=== PATIENT | female | born 1970 | race Caucasian/White ===

== ENCOUNTER 2017-11-23 07:30 | Emergency (ER) | payer BC, OTHER ==
[2017-11-23 07:46] VITALS: BP 104/72
--- NOTE | 2017-11-23 07:53 | UC ---
Throat Pain/Nasal Christiano HPI - HPI Summary HPI Summary: 47 yo f sore throat x 3-4 days. Tonsils swollen with exudates. No sob. Minimal runny nose. No chapa. No chest congestion. - History of Current Complaint Chief Complaint: UCGeneralIllness Stated Complaint: SORE THROAT Time Seen by Provider: 11/23/17 07:39 Hx Obtained From: Patient ?: No Onset/Duration: Lasting Days Severity: Moderate Pain Intensity: 9 Cough: None Associated Signs & Symptoms: Positive: Dysphagia - Epiglottits Risk Factors Epiglottis Risk Factors: Negative - Allergies/Home Medications Allergies/Adverse Reactions: Allergies Allergy/AdvReac Type Severity Reaction Status Date / Time No Known Allergies Allergy Verified 11/23/17 07:43 Home Medications: Home Medications Ibuprofen TAB* [Advil TAB*] 800 mg PO Q6H PRN 11/23/17 [History Confirmed ] PMH/Surg Hx/FS Hx/Imm Hx Previously Healthy: Yes Other Endocrine History: NO DM Other Cardiovascular History: NO HTN - Surgical History Surgical History: None - Family History Known Family History: Positive: Diabetes, Respiratory Disease - ASTHMA - Social History Occupation: Employed Full-time Alcohol Use: Occasionally Substance Use Type: None Smoking Status (MU): Never Smoked Tobacco Review of Systems Constitutional: Fever Skin: Negative Eyes: Negative ENT: Sore Throat Respiratory: Negative, Other - no cough Cardiovascular: Negative Gastrointestinal: Negative Genitourinary: Negative Motor: Negative Neurovascular: Negative Musculoskeletal: Negative Neurological: Negative Psychological: Negative Is Patient Immunocompromised?: Yes All Other Systems Reviewed And Are Negative: Yes Physical Exam Triage Information Reviewed: Yes Appearance: Ill-Appearing - mildly Vital Signs: Initial Vital Signs Temp 98.6 F 11/23/17 07:39 Pulse 90 11/23/17 07:39 Resp 15 11/23/17 07:39 BP 104/72 11/23/17 07:39 Pulse Ox 100 11/23/17 07:39 Vital Signs Reviewed: Yes Eye Exam: Normal ENT: Positive: Pharyngeal erythema, Nasal congestion, TMs normal, Tonsillar swelling, Tonsillar exudate Dental Exam: Normal Neck exam: Normal Neck: Positive: Supple Respiratory: Positive: Lungs clear, Normal breath sounds Cardiovascular: Positive: RRR Musculoskeletal Exam: Normal Musculoskeletal: Positive: Strength Intact, ROM Intact Neurological Exam: Normal Neurological: Positive: Alert, Muscle Tone Normal Psychological Exam: Normal Skin Exam: Normal Throat Pain/Nasal Course/Dx - Course Course Of Treatment: DISCUSSED VIRAL VERSES BACTERIAL INFECTION AND THE ROLE OF ANTIBIOTICS. THE PATIENT WISHES TO BE ON ANTIBIOTICS AT THIS TIME. - Differential Dx/Diagnosis Provider Diagnoses: TONSILLITIS Discharge - Sign-Out/Discharge Documenting (check all that apply): Patient Departure - Discharge Plan Condition: Stable Disposition: HOME Prescriptions: Amoxicillin PO (*) [Amoxicillin 875 MG (*)] 875 mg PO BID #20 tab Patient Education Materials: Tonsillitis (ED) Referrals: Alexandria Woods MD [Primary Care Provider] - Additional Instructions: FOLLOW UP WITH YOUR DOCTOR IF NOT COMPLETELY IMPROVED. GET RECHECKED FOR ANY WORSENING OF YOUR CONDITION OR QUESTIONS OR CONCERNS. - Billing Disposition and Condition Condition: STABLE Disposition: Home
== END 2017-11-23 08:16 | disposition home or self-care (01) ==
LOC: UCCORT 07:30
DX: J03.90 Acute tonsillitis, unspecified (principal)
CPT/HCPCS: 87651; 99212; G0463

== ENCOUNTER 2017-11-25 17:00 | Emergency (ER) | payer BC, OTHER ==
[2017-11-25 17:29] VITALS: BP 124/69
--- NOTE | 2017-11-25 17:45 | UC ---
Throat Pain/Nasal Christiano HPI - HPI Summary HPI Summary: Pt returns to clinic with c/o worsening sore throat pain. Pt's strep at last visit was negative. Culture not sent. Pt has been taking amox, tylenol and ibuprofen as instructed but does not feel any better, feels worse. Pt has positive hx of mono 20+ years ago. - History of Current Complaint Chief Complaint: UCGeneralIllness Stated Complaint: SORE THROAT Time Seen by Provider: 11/25/17 17:33 Hx Obtained From: Patient ?: No Onset/Duration: Gradual Onset, Lasting Days, Worse Since Severity: Severe Pain Intensity: 9 Cough: None Associated Signs & Symptoms: Positive: Dysphagia - Epiglottits Risk Factors Epiglottis Risk Factors: Negative - Allergies/Home Medications Allergies/Adverse Reactions: Allergies Allergy/AdvReac Type Severity Reaction Status Date / Time No Known Allergies Allergy Verified 11/23/17 07:43 Home Medications: Home Medications Acetaminophen [Tylophen] 1,000 mg PO Q8H 11/25/17 [History Confirmed 11/25/17] PMH/Surg Hx/FS Hx/Imm Hx Previously Healthy: Yes - Surgical History Surgical History: None - Family History Known Family History: Positive: Diabetes, Respiratory Disease - ASTHMA - Social History Occupation: Employed Full-time Lives: With Family Alcohol Use: Occasionally Substance Use Type: None Smoking Status (MU): Never Smoked Tobacco Have You Smoked in the Last Year: No Review of Systems Constitutional: Chills, Fatigue Skin: Negative Eyes: Negative ENT: Sore Throat Respiratory: Negative Cardiovascular: Negative Gastrointestinal: Negative Genitourinary: Negative Motor: Negative Neurovascular: Negative Musculoskeletal: Myalgia Neurological: Negative Psychological: Negative Is Patient Immunocompromised?: No All Other Systems Reviewed And Are Negative: Yes Physical Exam Triage Information Reviewed: Yes Appearance: Ill-Appearing, Pain Distress Vital Signs: Initial Vital Signs Temp 98.9 F 11/25/17 17:23 Pulse 102 11/25/17 17:23 Resp 18 11/25/17 17:23 BP 124/69 11/25/17 17:23 Pulse Ox 99 11/25/17 17:23 Vital Signs Reviewed: Yes Eye Exam: Normal ENT Exam: Other ENT: Positive: Tonsillar swelling - touching, Tonsillar exudate - large amount Dental Exam: Normal Neck: Positive: Enlarged Nodes @ - bilateral submaxillary, > 1 cm and tender Respiratory Exam: Normal Cardiovascular Exam: Normal Musculoskeletal Exam: Normal Neurological Exam: Normal Psychological Exam: Normal Skin Exam: Normal Diagnostics - Laboratory Diagnostic Studies Completed/Ordered: rapid strep: negative. throat culture ordered, results pending Throat Pain/Nasal Course/Dx - Differential Dx/Diagnosis Differential Diagnosis/HQI/PQRI: Mononucleosis, Pharyngitis, Tonsillitis Provider Diagnoses: tonsillitis Discharge - Sign-Out/Discharge Documenting (check all that apply): Patient Departure - Discharge Plan Condition: Stable Disposition: HOME Prescriptions: Fluconazole 100 MG TAB* [Diflucan 100 MG TAB*] 100 mg PO DAILY #3 tab Lidocaine 2% VISCOUS* [Xylocaine 2% Viscous*] 15 ml SWISH SPIT Q6H PRN #1 btl PRN Reason: Pain Penicillin VK 500 MG TAB(NF) [Penicillin VK 500 mg Tab] 500 mg PO Q6H #40 tab predniSONE TAB* [Deltasone 20 MG TAB*] 20 mg PO DAILY #4 tab Patient Education Materials: Tonsillitis (ED) Referrals: Alexandria Woods MD [Primary Care Provider] - If Needed - Billing Disposition and Condition Condition: STABLE Disposition: Home
[2017-11-25] MEDS ORDERED: predniSONE TAB* 10 MG PO ONE (17:49)
[2017-11-25] MEDS ORDERED: Penicillin VK TAB* 250 MG PO ONE (18:06)
[2017-11-26 11:20] LABS: ABS Basophils 0 10^3/ul (0-0.2); ABS Eosinophils 0 10^3/ul (0-0.6); ABS Monocytes 0.7 10^3/ul (0-0.8); ABS Neutrophils 7.8 10^3/ul (1.5-7.7); ABS Nucleated RBC 0 10^3/ul; Eosinophil % 0.3 % (0-6); Hematocrit 36 % (35-47); Hemoglobin 11.5 g/dl (12.0-16.0); Lymphocyte % 10.3 % (25-47); Mean Corpuscular HGB Conc 32 g/dl (31-36); Mean Corpuscular Hemoglobin 26 pg (27-31); Mean Corpuscular Volume 82 fL (80-97); Mean Platelet Volume 10.4 um3 (7.4-10.4); Nucleated Red Blood Cells % 0; Platelet Count 184 10^3/ul (150-450); Red Blood Count 4.35 10^6/ul (4.00-5.40); Red Cell Distribution Width 15 % (10.5-15); White Blood Count 9.5 10^3/ul (3.5-10.8)
== END 2017-11-25 18:29 | disposition home or self-care (01) ==
LOC: UCCORT 17:00
DX: J03.90 Acute tonsillitis, unspecified (principal)
CPT/HCPCS: 36415; 85025; 86308; 86644; 86645; 87070; 87651; 99212; A9270-GY; G0463; J7512

== ENCOUNTER 2019-03-23 08:24 | Emergency (ER) | payer BC, OTHER ==
[2019-03-23 08:37] VITALS: BP 120/60
[2019-03-23] MEDS ORDERED: Lidocaine 1% MPF ** 5 ML VIAL INJ ONE (08:45)
--- NOTE | 2019-03-23 09:22 | UC ---
Skin Complaint HPI - HPI Summary HPI Summary: Pt presents with c/o swelling and tenderness in left labia. Pt reports that she has a hx of labia abscesses but that they "usually open and drain on their own". Pt states pain began ~ 1 week ago and over the last 2-3 days, swelling and pain have worsened. Pt has been applying warm packs and applying "home remedies" with no improvement of symptoms. - History of Current Complaint Chief Complaint: EDUrogenitalProblems Time Seen by Provider: 03/23/19 08:25 Stated Complaint: PERSONAL Hx Obtained From: Patient ?: No Onset/Duration: Gradual Onset, Lasting Days, Still Present, Worse Since - onset Skin Exposure Onset/Duration: Days Ago Timing: Constant Onset Severity: Mild Current Severity: Severe Pain Intensity: 8 Location: Discrete - left labia majora Character: Swelling, Raised, Painful Aggravating Factor(s): Touch Alleviating Factor(s): Nothing Associated Signs & Symptoms: Positive: Tenderness - Allergy/Home Medications Allergies/Adverse Reactions: Allergies Allergy/AdvReac Type Severity Reaction Status Date / Time sulfamethoxazole Allergy Mild Nausea Verified 03/23/19 08:38 [From Bactrim] trimethoprim [From Bactrim] Allergy Mild Nausea Verified 03/23/19 08:38 PMH/Surg Hx/FS Hx/Imm Hx Previously Healthy: Yes - Surgical History Surgical History: None - Family History Known Family History: Positive: Diabetes, Respiratory Disease - ASTHMA - Social History Occupation: Employed Full-time Lives: With Family Alcohol Use: Occasionally Substance Use Type: None Smoking Status (MU): Never Smoked Tobacco Have You Smoked in the Last Year: No Review of Systems All Other Systems Reviewed And Are Negative: Yes Constitutional: Positive: Negative Skin: Positive: Other - swelling, erythema, tenderness left labia Eyes: Positive: Negative ENT: Positive: Negative Respiratory: Positive: Negative Cardiovascular: Positive: Negative Gastrointestinal: Positive: Negative Genitourinary: Positive: Vaginal/Penile Tenderness - left labia swelling and tenderness Motor: Positive: Negative Neurovascular: Positive: Negative Musculoskeletal: Positive: Negative Neurological: Positive: Negative Psychological: Positive: Negative Is Patient Immunocompromised?: No Physical Exam Triage Information Reviewed: Yes Appearance: Pain Distress Vital Signs: Initial Vital Signs Temp 99.3 F 03/23/19 08:33 Pulse 90 03/23/19 08:33 Resp 18 03/23/19 08:33 BP 120/60 03/23/19 08:33 Pulse Ox 100 03/23/19 08:33 Vital Signs Reviewed: Yes Eye Exam: Normal ENT Exam: Normal Dental Exam: Normal Neck exam: Normal Respiratory Exam: Normal Respiratory: Positive: No respiratory distress Pelvic Exam: Positive: Mass - left labia majora Musculoskeletal Exam: Normal Neurological Exam: Normal Psychological Exam: Normal Skin Exam: Other - significant swelling left labia majora Procedures - Incision and Drainage Left Groin Site: left labia major Anesthesia: Local Instrument(s): Scalpel - 11 blade Course/Dx - Course Course Of Treatment: 5 cc of 1% lidocaine injected at site, 11 blade used for incision, small incision of 5mm made, large amount of purulent drainage. wound was irrigated with 500 cc normal saline. Pt tolerated procedure well. - Differential Diagnoses - Skin Complaint Differential Diagnoses: Abscess, Cellulitis, MRSA - Diagnoses Provider Diagnosis: Left genital labial abscess, Encounter for incision and drainage procedure Discharge ED - Sign-Out/Discharge Documenting (check all that apply): Patient Departure All imaging exams completed and their final reports reviewed: No Studies - Discharge Plan Condition: Stable Disposition: HOME Prescriptions: Cephalexin CAP* [Keflex 500 CAP*] 500 mg PO Q6H #40 cap Patient Education Materials: Abscess (ED) Referrals: Alexandria Woods MD [Primary Care Provider] - If Needed Additional Instructions: Please follow up with your PCP as needed. Please monitor for signs and symptoms of infection that include but are not limited to redness, tenderness, swelling, fever, and chills. - Billing Disposition and Condition Condition: STABLE Disposition: Home
== END 2019-03-23 09:39 | disposition home or self-care (01) ==
LOC: UCCORT 08:24
DX: N76.4 Abscess of vulva (principal); Z88.2 Allergy status to sulfonamides; Z88.1 Allergy status to other antibiotic agents
CPT/HCPCS: 10060; 56405; 87070; 87077; 87185; 87205; 87640; 87641; 99212; G0463